=== PATIENT | female | born 1955 | race American Indian/Alaskan Native ===

== ENCOUNTER → 2023-04-29 09:11 | Outpatient (REF) | payer MEDICARE, OTHER, SELFPAY ==
[2023-04-29] VITALS (7 sets, daily range): BP systolic 61–117; BP diastolic 52–68
[2023-04-29 09:47] LABS: % Basophils 1.2 % (0-2); % Eosinophils 2.1 % (0-6); % Immature Granulocytes 4.9 % (0-0.5); % Lymphocytes 27.1 % (20.5-51.1); % Monocytes 12.1 % (1.7-9.3); % Neutrophils 52.6 % (42.2-75.2); Absolute Basophils 0.1 10^3/uL (0-0.2); Absolute Eosinophils 0.1 10^3/uL (0-0.7); Absolute Immature Granulocytes 0.2 10^3/uL (0-0.05); Absolute Lymphocytes 1.2 10^3/uL (1.2-3.4); Absolute Monocytes 0.5 10^3/uL (0.1-0.6); Absolute Neutrophils 2.3 10^3/uL (1.4-6.5); Hematocrit 26.8 % (37.0-47.0); Hemoglobin 8.7 g/dL (12.0-16.0); Mean Corp Hgb Conc. 32.5 g/dL (33.0-37.0); Mean Corpuscular Hgb 28.7 pg (27.0-31.0); Mean Corpuscular Volume 88.4 fL (81.0-99.0); Nucleated Red Blood Cells % 2.8 %; Platelet Count 236 10^3/uL (130-400); Red Blood Cell Count 3.03 10^6/uL (4.20-5.40); Red Cell Dist. Width 20.1 % (11.5-14.5); White Blood Cell Count 4.3 10^3/uL (4.8-10.8)
[2023-04-29 09:55] LABS: INR 1.03; PT 13.5 Sec (11.4-14.6)
[2023-04-29] MEDS: NSS (PRESERVATIVE FREE) 0.25 ML IV (10:52)
[2023-04-29] MEDS: ATIVAN 0.5 MG IV (10:52)
[2023-04-29] MEDS: FLUSH (NSS) 1 FLUSH IV (10:53)
== END ==
LOC: RADI 09:11
PROVIDERS: ATTENDING PHYSICIAN Internal Medicine Hematology & Oncology; FAMILY PHYSICIAN Internal Medicine
DX: D75.81 Myelofibrosis (principal); D68.8 Other specified coagulation defects; D47.3 Essential (hemorrhagic) thrombocythemia
CPT/HCPCS: 88305; 88311; 88312; 36415; 38222; 77012; 85025; 85610; 88313; 88341; 88342

== ENCOUNTER → 2024-10-11 12:04 | Outpatient (REF) | payer MEDICARE, OTHER, SELFPAY ==
[2024-10-11 12:51] LABS: Blood Urea Nitrogen 23 mg/dl (7-17); Calcium 9.4 mg/dl (8.4-10.2); Carbon Dioxide 25 mmol/L (22-30); Chloride 108 mmol/L (98-107); Glucose 114 mg/dl (70-99); Potassium 4.5 mmol/L (3.5-5.1); Sodium 139 mmol/L (135-145); eGFR > 60.00
== END ==
LOC: RCS 12:04
PROVIDERS: ATTENDING PHYSICIAN Orthopaedic Surgery; FAMILY PHYSICIAN Internal Medicine
DX: Z01.818 Encounter for other preprocedural examination (principal)
CPT/HCPCS: 36415; 80048; 93005